=== PATIENT | male | born 1995 | race Caucasian/White ===

== ENCOUNTER 2022-10-13 20:56 | Emergency (ER) | payer SELFPAY ==
[2022-10-13 21:35] LABS: ESTIMATED GFR 124 mL/min (>60)
== END 2022-10-13 22:29 | disposition home or self-care (01) ==
LOC: JP.ED 20:56
DX: F10.920 Alcohol use, unspecified with intoxication, uncomplicated (principal); R73.9 Hyperglycemia, unspecified; Y90.8 Blood alcohol level of 240 mg/100 ml or more
CPT/HCPCS: 36415; 80053; 80307; 85025; 99284